=== PATIENT | male | born 1965 | race Hispanic/Latino ===

== ENCOUNTER 2017-12-21 19:00 | Emergency (ER) | payer SELFPAY ==
[2017-12-21] MEDS ORDERED: PHENYLEPHRINE 0.5% NOSE 15ML NAS ONE (20:14)
[2017-12-21] MEDS ORDERED: LIDOCAINE VISCOUS 2% SOLN 15 ML UDC ONE (20:18)
--- NOTE | 2017-12-21 20:22 | EDPHYS ---
Physician Documentation [facility] Name: Jose Salazar Age: 52 yrs Sex: Male : 1965 Arrival Date: 12/21/2017 Time: 19:05 Bed Waiting Private MD: ED Physician Moi Bean HPI: 12/21 20:05 This 52 yrs old Male presents to ER via Ambulatory with complaints of Nose ps1 Bleed. 20:05 patient scratched his right nares and now has epistaxis. Not on blood thinner. Has ps1 nasal clamp from triage. Pain mild. . Historical: - Allergies: 19:07 No Known Allergies; aa1 - Home Meds: 19:07 None [Active]; aa1 - PMHx: : None; aa1 - PSHx: 19:07 None; aa1 - Immunization history:: Last tetanus immunization: unknown. - Social history:: Smoking status: Patient/guardian denies using tobacco. - Ebola Screening: : No symptoms or risks identified at this time. ROS: 20:05 Constitutional: Negative for fever, chills, and weight loss, Eyes: Negative for injury, ps1 pain, redness, and discharge, Cardiovascular: Negative for chest pain, palpitations, and edema, Respiratory: Negative for shortness of breath, cough, wheezing, and pleuritic chest pain, Abdomen/GI: Negative for abdominal pain, nausea, vomiting, diarrhea, and constipation, MS/Extremity: Negative for injury and deformity, Neuro: Negative for headache, weakness, numbness, tingling, and seizure. 20:05 ENT: Positive for nose bleed. Exam: 20:05 Constitutional: This is a well developed, well nourished patient who is awake, alert, ps1 and in no acute distress. Head/Face: Normocephalic, atraumatic. Eyes: Pupils equal round and reactive to light, extra-ocular motions intact. Lids and lashes normal. Conjunctiva and sclera are non-icteric and not injected. Chest/axilla: Normal chest wall appearance and motion. Nontender with no deformity. No lesions are appreciated. Cardiovascular: Regular rate and rhythm. No gallops, murmurs, or rubs. Normal PMI, no JVD. No pulse deficits. Respiratory: Lungs have equal breath sounds bilaterally, clear to auscultation and percussion. No rales, rhonchi or wheezes noted. No increased work of breathing, no retractions or nasal flaring. Skin: Warm, dry with normal turgor. Normal color with no rashes, no lesions, and no evidence of cellulitis. MS/ Extremity: Pulses equal, no cyanosis. Neurovascular intact. Full, normal range of motion. Neuro: Awake and alert, GCS 15, oriented to person, place, time, and situation. Cranial nerves II-XII grossly intact. Sensory grossly intact. 20:05 ENT: Nose: Nasal septum: is midline, bleeding, and is moderate, that is moderate sized, clotted blood, in right nare, nasal drainage, and expressed from the right nare. Vital Signs: 19:07 BP 157 / 85; Pulse 83; Resp 18; Temp 98.8; Pulse Ox 96% on R/A; Weight 83.91 kg; Height aa1 5 ft. 9 in. (175.26 cm); Pain 0/10; 20:07 BP 120 / 81; Pulse 81; Resp 18; Pulse Ox 97% on R/A; aa1 19:07 Body Mass Index 27.32 (83.91 kg, 175.26 cm) aa1 Procedures: 20:09 Epistaxis treatment: A moderate amount of bleeding noted from right nare. Treated using ps1 Oxymetazoline sprays, nasal clamp, rhino rocket, Bleeding stopped. MDM: 20:09 Data reviewed: vital signs, nurses notes. Response to treatment: the patient's symptoms ps1 have markedly improved after treatment, and as a result, I will discharge patient, administer antibiotics. Special discussion: Based on the history and exam findings, there is no indication for further emergent testing or inpatient evaluation. I discussed with the patient/guardian the need to see the ENT specialist for further evaluation of the symptoms. 20:21 Patient medically screened. ps1 Administered Medications: 20:17 Drug: Boom-Synephrine [place] 0.5 % 2 sprays Route: Intranasal; Site: right nare; aa1 Disposition: 12/21/17 20:21 Discharged to Home. Impression: Epistaxis. - Condition is Stable. - Discharge Instructions: Nosebleed, Adult. - Prescriptions for Keflex 500 mg Oral Capsule - take 1 capsule by ORAL route every 12 hours for 10 days; 20 capsule. - Medication Reconciliation Form, Thank You Letter, Antibiotic Education, Prescription Opioid Use form. - Follow up: Jasmin Montes MD; When: 48 Hours; Reason: Recheck today's complaints, Continuance of care. - Problem is new. - Symptoms have improved. Signatures: Beena Antonio RN RN aa1 Moi Bean MD MD ps1 Corrections: (The following items were deleted from the chart) 20:06 20:05 This 52 yrs old Male presents to ER via Ambulatory with complaints of ps1 Nose Bleed. ps1 20:26 20:21 12/21/2017 20:21 Discharged to Home. Impression: Epistaxis. Condition is Stable. aa1 Forms are Medication Reconciliation Form, Thank You Letter, Antibiotic Education, Prescription Opioid Use. Follow up: Jasmin Montes; When: 48 Hours; Reason: Recheck today's complaints, Continuance of care. Problem is new. Symptoms have improved. ps1
--- NOTE | 2017-12-21 20:22 | ER ---
Nurse's Notes [facility] Name: Jose Salazar Age: 52 yrs Sex: Male : 1965 Arrival Date: 12/21/2017 Time: 19:05 Bed Waiting Private MD: Diagnosis: Epistaxis Presentation: 12/21 19:06 Presenting complaint: Patient states: he scratched his nose and it started bleeding and aa1 now it won't stop. Blood slowly dripping from R nare. Denies use of blood thinners. Transition of care: patient was not received from another setting of care. Onset of symptoms was December 21, 2017. Risk Assessment: Do you want to hurt yourself or someone else? Patient reports no desire to harm self or others. Initial Sepsis Screen: Does the patient meet any 2 criteria? No. Patient's initial sepsis screen is negative. Does the patient have a suspected source of infection? Yes: Skin breakdown/wound. Care prior to arrival: None. 19:06 Method Of Arrival: Ambulatory aa1 19:06 Acuity: ADAM 4 aa1 Triage Assessment: 19:07 General: Appears in no apparent distress. comfortable, Behavior is calm, cooperative, aa1 appropriate for age. Historical: - Allergies: 19:07 No Known Allergies; aa1 - Home Meds: 19:07 None [Active]; aa1 - PMHx: 19:07 None; aa1 - PSHx: 19:07 None; aa1 - Immunization history:: Last tetanus immunization: unknown. - Social history:: Smoking status: Patient/guardian denies using tobacco. - Ebola Screening: : No symptoms or risks identified at this time. Screenin:07 Abuse screen: Denies threats or abuse. Denies injuries from another. Nutritional aa1 screening: No deficits noted. Tuberculosis screening: No symptoms or risk factors identified. Fall Risk None identified. Assessment: 20:07 General: Appears in no apparent distress. comfortable, Behavior is calm, cooperative, aa1 appropriate for age. Pain: Denies pain. Neuro: Level of Consciousness is awake, alert, obeys commands, Oriented to person, place, time, situation, Moves all extremities. Full function Gait is steady, Speech is normal. Respiratory: Airway is patent Respiratory effort is even, unlabored, Respiratory pattern is regular, symmetrical. GI: No signs and/or symptoms were reported involving the gastrointestinal system. : No signs and/or symptoms were reported regarding the genitourinary system. EENT: Nares no active bleeding noted at this time. Reports nasal discharge that is bloody. Derm: Skin is intact, is healthy with good turgor, Skin is pink, warm \T\ dry. Musculoskeletal: Circulation, motion, and sensation intact. Capillary refill < 3 seconds. Vital Signs: 19:07 BP 157 / 85; Pulse 83; Resp 18; Temp 98.8; Pulse Ox 96% on R/A; Weight 83.91 kg; Height aa1 5 ft. 9 in. (175.26 cm); Pain 0/10; 20:07 BP 120 / 81; Pulse 81; Resp 18; Pulse Ox 97% on R/A; aa1 19:07 Body Mass Index 27.32 (83.91 kg, 175.26 cm) aa1 ED Course: 19:05 Patient arrived in ED. rg4 19:07 Triage completed. aa1 19:07 Arm band placed on left wrist. Patient placed in waiting room, Patient notified of wait aa1 time. 20:05 Moi Bean MD is Attending Physician. ps1 20:07 Beena Antonio RN is Primary Nurse. aa1 20:07 Patient has correct armband on for positive identification. aa1 20:07 Assist provider with nosebleed control using Afrin sprays, rhino rocket placed for aa1 extensive packing needs, Bleeding from right nares. Set up for procedure. Performed by Moi Bean MD Bleeding stopped. Patient tolerated well. Patient did not have IV access during this emergency room visit. 20:20 Jasmin Montes MD is Referral Physician. ps1 Administered Medications: 20:17 Drug: Boom-Synephrine Madeline 0.5 % 2 sprays Route: Intranasal; Site: right nare; aa1 Outcome: 20:21 Discharge ordered by . ps1 20:26 Discharged to home ambulatory, with significant other. aa1 20:26 Condition: good 20:26 Discharge instructions given to patient, significant other, Instructed on discharge instructions, follow up and referral plans. medication usage, Demonstrated understanding of instructions, follow-up care, medications, Prescriptions given X 1. 20:26 Patient left the ED. aa1 Signatures: Beena Antonio RN RN aa1 Aretha Verma rg4 Moi Bean, MD ps1
== END 2017-12-21 20:26 | disposition home or self-care (01) ==
LOC: ER 19:00
PROC: 2Y41X5Z Packing of Nasal Region using Packing Material (ICD-10-PCS; principal; 2017-12-21)
DX: R04.0 Epistaxis (principal)
CPT/HCPCS: 30901; 99283

== ENCOUNTER 2017-12-22 13:43 | Emergency (ER) | payer SELFPAY ==
[2017-12-22] MEDS ORDERED: PHENYLEPHRINE 0.5% NOSE 15ML NAS ONE (14:10)
[2017-12-22] MEDS ORDERED: SILVER NITRATE 1 APPL TOP ONE ×2 (14:10→15:19)
--- NOTE | 2017-12-22 20:15 | EDPHYS ---
Physician Documentation [facility] Name: Jose Salazar Age: 52 yrs Sex: Male : 1965 Arrival Date: 12/22/2017 Time: 13:46 Bed 6 Private MD: Jasmin Montes J ED Physician Moi Bean HPI: 12/22 14:20 This 52 yrs old Male presents to ER via Ambulatory with complaints of Nose ps1 Bleed. 14:20 patient seen and evaluated yesterday by myself. Rhino rocket placed and patient ps1 presented unable to get into Dr. Montes's office until Thursday. He was complaining of pain in nares. Removed Rhino rocket to reevaluate and had anterior nasal artery hemorrhage. . Historical: - Allergies: 14: No Known Allergies; aj - Home Meds: 14: None [Active]; aj - PMHx: 14: Alcoholism; aj - PSHx: 14:01 None; aj - Immunization history:: Adult Immunizations up to date. - Social history:: Smoking status: Patient/guardian denies using tobacco, Patient uses alcohol, on a daily basis. - Ebola Screening: : Patient negative for fever greater than or equal to 101.5 degrees Fahrenheit, and additional compatible Ebola Virus Disease symptoms Patient denies exposure to infectious person Patient denies travel to an Ebola-affected area in the 21 days before illness onset No symptoms or risks identified at this time. ROS: 14:20 Constitutional: Negative for fever, chills, and weight loss, Eyes: Negative for injury, ps1 pain, redness, and discharge, Cardiovascular: Negative for chest pain, palpitations, and edema, Respiratory: Negative for shortness of breath, cough, wheezing, and pleuritic chest pain, Abdomen/GI: Negative for abdominal pain, nausea, vomiting, diarrhea, and constipation, Back: Negative for injury and pain, MS/Extremity: Negative for injury and deformity, Neuro: Negative for headache, weakness, numbness, tingling, and seizure. 14:20 ENT: Positive for nose bleed. Exam: 14:20 Constitutional: This is a well developed, well nourished patient who is awake, alert, ps1 and in no acute distress. Head/Face: Normocephalic, atraumatic. Eyes: Pupils equal round and reactive to light, extra-ocular motions intact. Lids and lashes normal. Conjunctiva and sclera are non-icteric and not injected. Chest/axilla: Normal chest wall appearance and motion. Nontender with no deformity. No lesions are appreciated. Cardiovascular: Regular rate and rhythm. No gallops, murmurs, or rubs. Normal PMI, no JVD. No pulse deficits. Respiratory: Lungs have equal breath sounds bilaterally, clear to auscultation and percussion. No rales, rhonchi or wheezes noted. No increased work of breathing, no retractions or nasal flaring. Abdomen/GI: Soft, non-tender, with normal bowel sounds. No distension or tympany. No guarding or rebound. No evidence of tenderness throughout. Skin: Warm, dry with normal turgor. Normal color with no rashes, no lesions, and no evidence of cellulitis. MS/ Extremity: Pulses equal, no cyanosis. Neurovascular intact. Full, normal range of motion. 14:20 ENT: Nose: bleeding, is seen from the right nare, and is profuse, no septal hematoma is appreciated, Examination of the other nostril shows no obvious abnormality. Vital Signs: 14:01 BP 159 / 88; Pulse 82; Resp 20; Temp 98.4; Pulse Ox 100% on R/A; Weight 83.91 kg; aj Height 5 ft. 9 in. (175.26 cm); 15:17 BP 156 / 86; Pulse 78; Resp 16; Pulse Ox 97% on R/A; ph 16:24 BP 167 / 88; Pulse 77; Resp 18; Pulse Ox 100% on R/A; Pain 0/10; mg2 18:05 BP 161 / 90; Pulse 79; Resp 18; Pulse Ox 99% on R/A; Pain 0/10; mg2 19:15 BP 170 / 86; Pulse 75; Resp 14; Pulse Ox 98% ; bp 14:01 Body Mass Index 27.32 (83.91 kg, 175.26 cm) Procedures: 14:20 Epistaxis treatment: A moderate amount of bleeding noted from Pulsatile bleeding noted ps1 from right nare. Treated using cauterization, silver nitrate, direct pressure. MDM: 14:20 Data reviewed: vital signs, nurses notes. ps1 14:48 Patient medically screened. ps1 Administered Medications: 14:15 Drug: Silver Nitrate Applicators 1 application {Note: R nare.} Route: Topical; Site: ph affected area; 19:39 Follow up: Response: No adverse reaction bp 14:15 Drug: Afrin Drops (0.05 %) 1 sprays Route: Intranasal; Site: right nare; ph 19:40 Follow up: Response: No adverse reaction bp Disposition: 12/22/17 19:35 Discharged to Home. Impression: Epistaxis. - Condition is Stable. - Discharge Instructions: Nosebleed, Adult. - Medication Reconciliation Form, Thank You Letter, Antibiotic Education, Prescription Opioid Use form. - Follow up: Jasmin Montes MD; When: 1 week; Reason: Continuance of care. Follow up: Emergency Department; When: As needed; Reason: Worsening of condition. - Problem is an ongoing problem. - Symptoms have improved. Signatures: Deanna Christensen RN RN Mickie Pierre RN RN Fred Hernandez RN RN bp Moi Bean MD MD ps1 Corrections: (The following items were deleted from the chart) 19:50 19:35 12/22/2017 19:35 Discharged to Home. Impression: Epistaxis. Condition is Stable. bp Forms are Medication Reconciliation Form, Thank You Letter, Antibiotic Education, Prescription Opioid Use. Follow up: Jasmin Montes; When: 1 week; Reason: Continuance of care. Follow up: Emergency Department; When: As needed; Reason: Worsening of condition. Problem is an ongoing problem. Symptoms have improved. ps1
--- NOTE | 2017-12-22 20:15 | ER ---
Nurse's Notes [facility] Name: Jose Salazar Age: 52 yrs Sex: Male : 1965 Arrival Date: 12/22/2017 Time: 13:46 Bed 6 Private MD: Jasmin Montes J Diagnosis: Epistaxis Presentation: 12/22 13:59 Presenting complaint: Patient states: "I want this thing out of my nose, it is aj uncomfortable." Patient seen in this ER last night, Rhino Rocket placed in right nare. Patient reports he was unable to follow up with Dr Montes. Did not fill ABX. Transition of care: patient was not received from another setting of care. Onset of symptoms was December 21, 2017. Risk Assessment: Do you want to hurt yourself or someone else? Patient reports no desire to harm self or others. Initial Sepsis Screen: Does the patient meet any 2 criteria? No. Patient's initial sepsis screen is negative. Does the patient have a suspected source of infection? No. Patient's initial sepsis screen is negative. Care prior to arrival: None. 13:59 Method Of Arrival: Ambulatory 13:59 Acuity: ADAM 5 aj Triage Assessment: 14:01 General: Appears in no apparent distress. comfortable, Behavior is calm, cooperative, aj appropriate for age. Pain: Complains of pain in right nostril. EENT: Reports pain in right nostril. Neuro: Level of Consciousness is awake, alert, obeys commands, Oriented to person, place, time, situation, Appropriate for age. Respiratory: Airway is patent Respiratory effort is even, unlabored, Respiratory pattern is regular, symmetrical. Derm: Skin is intact, is healthy with good turgor, Skin is pink, warm \\T\\ dry. normal. Historical: - Allergies: 14:01 No Known Allergies; aj - Home Meds: 14:01 None [Active]; aj - PMHx: 14: Alcoholism; aj - PSHx: 14:01 None; aj - Immunization history:: Adult Immunizations up to date. - Social history:: Smoking status: Patient/guardian denies using tobacco, Patient uses alcohol, on a daily basis. - Ebola Screening: : Patient negative for fever greater than or equal to 101.5 degrees Fahrenheit, and additional compatible Ebola Virus Disease symptoms Patient denies exposure to infectious person Patient denies travel to an Ebola-affected area in the 21 days before illness onset No symptoms or risks identified at this time. Screenin:19 Abuse screen: Denies threats or abuse. Denies injuries from another. Nutritional ph screening: No deficits noted. Tuberculosis screening: No symptoms or risk factors identified. Fall Risk None identified. Assessment: 14:10 General: Appears in no apparent distress. comfortable, obese, well groomed, Behavior is ph calm, cooperative, appropriate for age, Denies fever, feeling ill. Pain: Denies pain. Neuro: Level of Consciousness is awake, alert, obeys commands, Oriented to person, place, time, situation, Denies weakness blurred vision dizziness, headache. Cardiovascular: Capillary refill < 3 seconds in bilateral fingers Patient's skin is warm and dry. Respiratory: Airway is patent Respiratory effort is even, unlabored. GI: No signs and/or symptoms were reported involving the gastrointestinal system. Patient currently denies nausea. EENT: Nares with bleeding noted on right. Derm: Skin is intact, is healthy with good turgor, Skin is pink, warm \\T\\ dry. Musculoskeletal: Circulation, motion, and sensation intact. Range of motion: intact in all extremities. 14:15 Reassessment: Dr Bean at bedside to assess bleeding. R nare suctioned, Affrin and ph silver nitrate administered and nasal clamp applied. 15:16 Reassessment: Patient appears in no apparent distress at this time. Patient and/or ph family updated on plan of care and expected duration. Pain level reassessed. Patient is alert, oriented x 3, equal unlabored respirations, skin warm/dry/pink. ERP at bedside, small amount of bleeding still noted, applied small amount of silver nitrate to area. 18:06 Reassessment: Patient appears in no apparent distress at this time. Patient and/or mg2 family updated on plan of care and expected duration. Pain level reassessed. Patient is alert, oriented x 3, equal unlabored respirations, skin warm/dry/pink. 19:00 Reassessment: RECD REPORT FROM MELISSA ALCALA. 52YO HM P/W NOSEBLEED, NOW RESOLVED. VS bp STABLE ON MONITOR. 19:48 Reassessment: PT D/C HOME AMBULATORY WITH FAMILY, DX WITH EPISTAXIS. NO BLEEDING AT bp THIS TIME. Vital Signs: 14:01 BP 159 / 88; Pulse 82; Resp 20; Temp 98.4; Pulse Ox 100% on R/A; Weight 83.91 kg; aj Height 5 ft. 9 in. (175.26 cm); 15:17 BP 156 / 86; Pulse 78; Resp 16; Pulse Ox 97% on R/A; ph 16:24 BP 167 / 88; Pulse 77; Resp 18; Pulse Ox 100% on R/A; Pain 0/10; mg2 18:05 BP 161 / 90; Pulse 79; Resp 18; Pulse Ox 99% on R/A; Pain 0/10; mg2 19:15 BP 170 / 86; Pulse 75; Resp 14; Pulse Ox 98% ; bp 14:01 Body Mass Index 27.32 (83.91 kg, 175.26 cm) aj ED Course: 13:46 Patient arrived in ED. sb2 13:46 Jasmin Montes MD is Private Physician. sb2 13:49 Moi Bean MD is Attending Physician. ps1 14:01 Triage completed. aj 14:01 Arm band placed on left wrist. Patient placed in an exam room. aj 14:28 Mickie Tovar, CARI is Primary Nurse. ph 15:20 Patient has correct armband on for positive identification. Bed in low position. Call ph light in reach. Side rails up X 1. Pulse ox on. NIBP on. 19:35 Jasmin Montes MD is Referral Physician. ps1 19:49 No provider procedures requiring assistance completed. Patient did not have IV access bp during this emergency room visit. Administered Medications: 14:15 Drug: Silver Nitrate Applicators 1 application {Note: R nare.} Route: Topical; Site: ph affected area; 19:39 Follow up: Response: No adverse reaction bp 14:15 Drug: Afrin Drops (0.05 %) 1 sprays Route: Intranasal; Site: right nare; ph 19:40 Follow up: Response: No adverse reaction bp Outcome: 19:35 Discharge ordered by MD. ps1 19:49 Discharged to home ambulatory, with family. bp 19:49 Condition: stable 19:49 Discharge instructions given to patient, Instructed on discharge instructions, follow up and referral plans. Demonstrated understanding of instructions, follow-up care. 19:50 Patient left the ED. bp Signatures: Deanna Christensen, RN RN Mickie Pierre RN RN ph Heena, Fred, RN RN bp Moi Bean MD MD ps1 Elizabeth Torres sb2 Shine Harris RN RN mg2
== END 2017-12-22 19:50 | disposition home or self-care (01) ==
LOC: ER 13:43
PROC: 0W3Q7ZZ Control Bleeding in Respiratory Tract, Via Natural or Artificial Opening (ICD-10-PCS; principal; 2017-12-22)
DX: R04.0 Epistaxis (principal)
CPT/HCPCS: 30901; 99283

== ENCOUNTER 2020-08-31 15:07 | Day surgery (SDC) | payer SELFPAY ==
--- OUTSIDE RECORDS SUMMARY | 2020-08-31 15:09 | XMS REPORT | Continuity of Care Document ---
:1965 Author Organization [facility] t Address [address] [place] [address] Care Team Providers Name Role Phone Silverio Walsh DO Attending Clinician Danilo Norton RN Attending Clinician Problems This patient has no known problems. Allergies, Adverse Reactions, Alerts This patient has no known allergies or adverse reactions. Medications This patient has no known medications. Procedures This patient has no known procedures. Encounters Start End Encounter Admission Attending Care Care Encounter Source Date/Time Date/Time Type Type Clinicians Facility Department ID 2020-08-14 2020-08-14 Patient Nico OHHARITHA [id number] 00:00:00 00:00:00 Outreach Silverio FERNÁNDEZ [id number] [place] [facility] [id number] KORY [id number] 2019-06-20 2019-06-20 Josep ANTHONY [id number] 00:00:00 00:00:00 Management , Poppy DASH [id number] [facility] [id number] Results This patient has no known results.
--- NOTE | 2020-08-31 16:21 | RAD REPORT ---
EXAM DESCRIPTION: RAD - Hand Left 3 View - 08/31/2020 4:05 pm CLINICAL HISTORY: Pain;Smash injury FINDINGS: Transverse fracture is seen involving the proximal phalanx of the fifth finger. Mild soft tissue swelling is evident. No dislocation is seen.
[2020-08-31] MEDS ORDERED: HYDROCODONE/APAP 7.5/325 MG TAB ONE (16:23)
[2020-08-31] MEDS ORDERED: TETANUS & DIPHTHERIA TOX,ADULT 0.5 ML VIAL ONE (16:24)
--- NOTE | 2020-08-31 16:45 | EDPHYS ---
Physician Documentation [facility] Name: Jose Salazar Age: 54 yrs Sex: Male : 1965 Arrival Date: 08/31/2020 Time: 15:12 Bed 14 Private MD: ED Physician Jabari Carmona HPI: 08/31 15:45 This 54 yrs old Male presents to ER via Ambulatory with complaints of Finger cp Injury. 15:45 The patient or guardian reports injury, a laceration, swelling, tenderness. The cp complaints affect the left fifth finger. 15:45 Context: resulted from a crush injury, from tire and rim. Onset: The symptoms/episode cp began/occurred just prior to arrival. Associated signs and symptoms: Pertinent negatives: cyanosis distally, decreased sensation distally. Historical: - Allergies: 15:29 No Known Allergies; ss - Home Meds: 15:29 None [Active]; ss - PMHx: 15:29 None; ss - PSHx: 15:29 None; ss - Immunization history:: Last tetanus immunization: unknown. - Social history:: Smoking status: Patient denies any tobacco usage or history of. ROS: 15:50 MS/extremity: Positive for injury or acute deformity, decreased range of motion, cp laceration, pain, swelling, tenderness, of the left fifth finger. 15:50 Eyes: Negative for injury, pain, redness, and discharge. cp 15:50 Constitutional: Negative for body aches, chills, fever, poor PO intake. 15:50 Cardiovascular: Negative for chest pain. 15:50 Respiratory: Negative for cough, shortness of breath, wheezing. 15:50 Abdomen/GI: Negative for abdominal pain, nausea, vomiting, and diarrhea. 15:50 Neuro: Negative for altered mental status, headache, weakness. 15:50 All other systems are negative. Exam: 15:55 Constitutional: The patient appears in no acute distress, alert, awake, cp non-diaphoretic, non-toxic, well developed, well nourished. 15:55 Head/Face: Normocephalic, atraumatic. cp 15:55 Chest/axilla: Inspection: normal. 15:55 Cardiovascular: Rate: normal, Rhythm: regular. 15:55 Respiratory: the patient does not display signs of respiratory distress, Respirations: normal, no use of accessory muscles, no retractions, labored breathing, is not present, Breath sounds: are clear throughout, no decreased breath sounds, no stridor, no wheezing. 15:55 Abdomen/GI: Exam negative for discomfort, distension, guarding, Inspection: abdomen appears normal. 15:55 Musculoskeletal/extremity: Extremities: grossly normal except: noted in the proximal phalanx left small finger: decreased ROM, laceration, pain, swelling, tenderness, Perfusion: the extremity is with brisk capillary refill, Sensation intact. 15:55 Neuro: Orientation: to person, place \T\ time. Mentation: is normal. 16:58 ECG was reviewed by the Attending Physician. Vital Signs: 15:27 BP 136 / 79; Pulse 88; Resp 16; Temp 99.3(TE); Pulse Ox 100% on R/A; Weight 79.38 kg; ss Height 5 ft. 9 in. (175.26 cm); Pain 8/10; 15:27 Body Mass Index 25.84 (79.38 kg, 175.26 cm) ss MDM: 15:32 Patient medically screened. cp 16:00 Differential diagnosis: dislocation, open fracture, closed fracture, contusion. cp 16:22 Physician consultation: Sagar Zuniga MD in the emergency department to see patient at cp 16:22, requests admittance for surgery. 16:25 Data reviewed: vital signs, nurses notes, radiologic studies, plain films, and as a result, I will admit patient. 08/31 16:21 Order name: Basic Metabolic Panel; Complete Time: 19:21 cp 08/31 Interpretation: Normal except: GLUC 487; CA 8.4. cp 08/31 16:21 Order name: CBC with Diff; Complete Time: 19:21 cp 08/31 19:22 Interpretation: Normal except: RBC 4.25; MCV 94.1; PLT 67. cp 08/31 16:21 Order name: LFT's; Complete Time: 19:21 cp 08/31 19:22 Interpretation: Normal except: AST 57; ALK 228; BILIT 2.5; BILID 0.8; ALB 2.9; GLOB cp 3.8; A/G 0.8. 08/31 16:21 Order name: Magnesium; Complete Time: 19:21 cp 08/31 16:21 Order name: PT-INR; Complete Time: 19:21 cp 08/31 15:39 Order name: XRAY Hand LEFT 3 View; Complete Time: 19:21 cp 08/31 16:21 Order name: XRAY Chest (1 view); Complete Time: 19:21 cp 08/31 16:21 Order name: EKG; Complete Time: 16:22 cp 08/31 15:39 Order name: Wound Care: please clean and irrigate wound; Complete Time: 15:45 cp 08/31 16:11 Order name: Dressing - Wound 08/31 16:11 Order name: Gloves, Sterile 08/31 16:11 Order name: Setup Suture Tray 08/31 16:21 Order name: Cardiac monitoring; Complete Time: 16:43 cp 08/31 16:21 Order name: EKG - Nurse/Tech; Complete Time: 16:43 cp 08/31 16:21 Order name: IV Saline Lock; Complete Time: 16:34 cp 08/31 16:21 Order name: Labs collected and sent; Complete Time: 16:34 cp 08/31 16:21 Order name: O2 Per Protocol; Complete Time: 16:43 cp 08/31 16:21 Order name: O2 Sat Monitoring; Complete Time: 16:43 cp 08/31 16:21 Order name: Urine Dipstick-Ancillary (obtain specimen) cp EC:58 Rate is 67 beats/min. Rhythm is regular. OK interval is normal. QRS interval is cp prolonged at 102 msec. QT interval is normal. T waves are Flattened in lead aVL. Interpreted by me. Reviewed by me. Administered Medications: 16:11 Drug: Tetanus-Diphtheria Toxoid Adult 0.5 ml {Surfacing Technician: magnetU. Exp: ll1 10/28/2021. Lot #: [id number]. } Route: IM; Site: right deltoid; 16:12 Drug: Hydrocodone-Acetaminophen (7.5 mg-325 mg) 1 tabs Route: PO; ll1 16:27 Not Given (OR): Marcaine (bupivacaine) (0.5 %) 5 ml 10 ml Infiltration once ll1 16:28 Not Given (OR): Lidocaine (1 %) 5 ml 5 ml Infiltration once; to bedside ll1 16:49 Not Given (Given to OR tech, Lixzena): Ancef (cefazolin) 1 grams IVPB once ll1 Disposition: 09/01 07:27 Co-signature as Attending Physician, Jabari Carmona MD I agree with the assessment and cathy plan of care. Disposition: 08/31/20 16:45 Hospitalization ordered by Sagar Zuniga for Observation. Preliminary diagnosis is Displaced fracture of proximal phalanx of left little finger - open. - Bed requested for Operating Room. - Status is Observation. ll1 - Condition is Stable. - Problem is new. - Symptoms have improved. Signatures: Dispatcher [employer] EDOK Jabari Carmona MD MD cha Smirch, Shelby, RN RN Jabari Adler PA PA cp Lewis, Lynsay RN RN ll1 Corrections: (The following items were deleted from the chart) 08/31 16:56 16:45 Hospitalization Ordered by Sagar Zuniga MD for Observation. Preliminary ll1 diagnosis is Displaced fracture of proximal phalanx of left little finger - open. Bed requested for Operating Room. Status is Observation. Condition is Stable. Problem is new. Symptoms have improved. cp
--- NOTE | 2020-08-31 16:45 | ER ---
Nurse's Notes [facility] Name: Jose Salazar Age: 54 yrs Sex: Male : 1965 Arrival Date: 08/31/2020 Time: 15:12 Bed 14 Private MD: Diagnosis: Displaced fracture of proximal phalanx of left little finger-open Presentation: 08/31 15:27 Chief complaint: Patient states: "A tire fell on my finger with the rim about 30 ss minutes ago. Swelling and small amount of dry blood noted to L fifth finger. Coronavirus screen: Client denies travel out of the [place] in the last 14 days. Ebola Screen: Patient denies exposure to infectious person. Patient denies travel to an Ebola-affected area in the 21 days before illness onset. Initial Sepsis Screen: Does the patient meet any 2 criteria? No. Patient's initial sepsis screen is negative. Does the patient have a suspected source of infection? No. Patient's initial sepsis screen is negative. Risk Assessment: Do you want to hurt yourself or someone else? Patient reports no desire to harm self or others. Onset of symptoms was August 31, 2020. 15:27 Method Of Arrival: Ambulatory ss 15:27 Acuity: ADAM 4 ss Historical: - Allergies: 15:29 No Known Allergies; ss - Home Meds: 15:29 None [Active]; ss - PMHx: 15:29 None; ss - PSHx: 15:29 None; ss - Immunization history:: Last tetanus immunization: unknown. - Social history:: Smoking status: Patient denies any tobacco usage or history of. Screenin:55 Abuse screen: Denies threats or abuse. Nutritional screening: No deficits noted. ll1 Tuberculosis screening: No symptoms or risk factors identified. Fall Risk IV access (20 points). Total Mata Fall Scale indicates No Risk (0-24 pts). Assessment: 16:05 General: Appears uncomfortable, Behavior is calm, cooperative, appropriate for age. ll1 16:05 Pain: Complains of pain in L hand 5th digit Quality of pain is described as aching. ll1 Derm: Wound noted <2 cm laceration L hand 5th digit Reports pain. Musculoskeletal: Circulation, motion, and sensation intact. Capillary refill < 3 seconds, Swelling present in L hand 5th digit Reports pain in L hand 5th digit. Injury Description: Crush injury. 16:55 Reassessment: No changes from previously documented assessment. Patient and/or family ll1 updated on plan of care and expected duration. Pain level reassessed. Patient is alert, oriented x 3, equal unlabored respirations, skin warm/dry/pink. Vital Signs: 15:27 BP 136 / 79; Pulse 88; Resp 16; Temp 99.3(TE); Pulse Ox 100% on R/A; Weight 79.38 kg; ss Height 5 ft. 9 in. (175.26 cm); Pain 8/10; 15:27 Body Mass Index 25.84 (79.38 kg, 175.26 cm) ss ED Course: 15:12 Patient arrived in ED. mr 15:29 Triage completed. ss 15:29 Arm band placed on right wrist. ss 15:32 Jabari Adler PA is PHCP. cp 15:32 Jabari Carmona MD is Attending Physician. cp 15:59 Cesar Gutiérrez RN is Primary Nurse. ll1 16:06 XRAY Hand LEFT 3 View In Process Unspecified. EDMS 16:35 Inserted saline lock: 22 gauge in right antecubital area, using aseptic technique. ll1 Blood collected. 16:43 Sagar Zuniga MD is Hospitalizing Provider. cp 16:47 XRAY Chest (1 view) In Process Unspecified. EDMS 16:56 Patient has correct armband on for positive identification. Bed in low position. Call ll1 light in reach. Side rails up X 1. 16:56 No provider procedures requiring assistance completed. Patient admitted, IV remains in ll1 place. Administered Medications: 16:11 Drug: Tetanus-Diphtheria Toxoid Adult 0.5 ml {Diet Aid: ITDatabase. Exp: ll1 10/28/2021. Lot #: [id number]. } Route: IM; Site: right deltoid; 16:12 Drug: Hydrocodone-Acetaminophen (7.5 mg-325 mg) 1 tabs Route: PO; ll1 16:27 Not Given (OR): Marcaine (bupivacaine) (0.5 %) 5 ml 10 ml Infiltration once ll1 16:28 Not Given (OR): Lidocaine (1 %) 5 ml 5 ml Infiltration once; to bedside ll1 16:49 Not Given (Given to OR tech, Lixzena): Ancef (cefazolin) 1 grams IVPB once ll1 Outcome: 16:45 Decision to Hospitalize by Provider. cp 16:56 Admitted to OR accompanied by tech, via stretcher, with chart, Report called to JAMESON Silvestre 16:56 Condition: stable 16:56 Instructed on the need for admit. 16:56 Patient left the ED. [facility] Signatures: Dispatcher [employer] LUCILAKY Miesha Bell mr Justine Partida, RN RN Jabari Manriquez, INGRIS PA cp Cesar Gutiérrez, RN RN 1
--- NOTE | 2020-08-31 16:52 | RAD REPORT ---
EXAM DESCRIPTION: RAD - Chest Single View - 08/31/2020 4:47 pm CLINICAL HISTORY: pre op Chest pain. COMPARISON: Chest Pa And Lat (2 Views) dated 06/19/2017 FINDINGS: Portable technique limits examination quality. The lungs are mildly emphysematous but grossly clear. The heart is normal in size. No displaced fract ures. IMPRESSION: No acute intrathoracic process suspected.
[2020-08-31 16:59] LABS: Absolute Lymphocytes (CBC) 1.1 K/uL (0.7-4.9); Basophils % 1.3 % (0-1.3); Lymphocytes % 23.4 % (15.3-44.8); MPV 11.2 fL (7.6-11.3); RBC Red Blood Cell Count 4.25 M/uL (4.33-5.43)
[2020-08-31] MEDS ORDERED: CEFAZOLIN/SWI 1gm 1 GM/10 ML SYR ONE (17:05)
[2020-08-31 17:07] LABS: Protime INR 1.63
[2020-08-31 17:16] LABS: ALT/SGPT 43 U/L (12-78); AST/SGOT 57 U/L (15-37); Albumin 2.9 g/dL (3.4-5.0); Alkaline Phosphatase 228 U/L (45-117); BUN Blood Urea Nitrogen 8 mg/dL (7-18); Bicarbonate 23 mmol/L (21-32); Bilirubin Direct 0.8 mg/dL (0-0.2); Bilirubin Total 2.5 mg/dL (0.2-1.0); Potassium 4.2 mmol/L (3.5-5.1); Protein, Total 6.7 g/dL (6.4-8.2); Sodium Level 137 mmol/L (136-145)
[2020-08-31 17:24] LABS: Glucose Level 487 mg/dL (74-106)
[2020-08-31] MEDS ORDERED: FENTANYL CITR 100 MCG/2 ML ONE (17:25)
[2020-08-31] MEDS ORDERED: propofoL 200 MG/20 ML VIAL IV ONE (17:25)
[2020-08-31] MEDS ORDERED: LIDOCAINE 1% MPF 5 ML VIAL ONE (17:25)
[2020-08-31] MEDS ORDERED: Ringers Lactate 1,000 ML IV ONE (17:25)
[2020-08-31] MEDS ORDERED: MIDAZOLAM HCL 2 MG/2 ML INJ ONE (17:26)
[2020-08-31] MEDS ORDERED: ONDANSETRON 4 MG/2 ML VIAL ONE (17:26)
[2020-08-31] MEDS ORDERED: dexAMETHasone 4 MG/ML VIAL ONE (17:26)
[2020-08-31] MEDS ORDERED: KETOROLAC 30 MG/ML INJ ONE (17:31)
[2020-08-31 18:21] LABS: Blood Morphology Comment NOT SEEN (NOT SEEN); Platelet Estimate DECR; White Blood Cell Scan OK (OK)
[2020-08-31 18:43] VITALS: TEMP 97.3
[2020-08-31 19:04] VITALS: BP 155/81; O2SAT 100
--- NOTE | 2020-08-31 19:04 | RAD REPORT ---
EXAM DESCRIPTION: RAD - Hand Left 2 View - 08/31/2020 6:49 pm CLINICAL HISTORY: Finger pinning COMPARISON: Hand Left 3 View dated 08/31/2020 FINDINGS: Fluoroscopy time 0.7 minutes.
[2020-08-31] MEDS ORDERED: CODEINE 30MG/APAP 300MG TAB ONE (19:19)
--- NOTE | 2020-08-31 23:20 | OP ---
Surgeon: Sagar Zuniga MD Preoperative Diagnosis: Fracture of left fifth proximal phalanx. Postoperative Diagnosis: Fracture of left fifth proximal phalanx. Procedure Performed: Percutaneous pinning and splint. Anesthesia: General. Procedure In Detail: After satisfactory induction of general anesthesia, left arm was prepped with Betadine scrub and paint. Dry sterile drapes were applied in the usual manner. A 0.035 K-wire was placed from distal to proximal with the PIP flexed under C-arm guidance and then used to reduce the fracture and hold the MCP joint. Two pins were placed and advanced proximally. Then the PIP joint was placed in extension and pins were advanced distally and then pins were bent and cut off and then dressed with Kerlix and splint. The patient tolerated procedure well and returned to recovery. ULICES/LICHA Voice ID: [id number] Report ID: [id number] FAITH
--- NOTE | 2020-09-01 10:17 | EKG ---
Test Date: 2020-08-31 Test Time: 16:49:41 Winery Worker: PAVITHRA MEASUREMENT RESULTS: Intervals: Rate: 67 CO: 164 QRSD: 102 QT: 418 QTc: 441 [place]: P: 56 CO: 164 QRS: 55 T: 62 INTERPRETIVE STATEMENTS: Normal sinus rhythm Normal ECG Compared to ECG 06/19/2017 19:39:28 Sinus tachycardia no longer present Electronically Signed On 09-01-20 10:15:20 CDT by Jaswinder Duffy
== END 2020-08-31 18:17 | disposition home or self-care (01) ==
LOC: ER 15:07 → OR 16:56 → ER 19:20
PROVIDERS: ATTEND Specialist
PROC: 0PSV34Z Reposition Left Finger Phalanx with Internal Fixation Device, Percutaneous Approach (ICD-10-PCS; principal; 2020-08-31 17:00)
DX: S62.617A Displaced fracture of proximal phalanx of left little finger, initial encounter for closed fracture (principal); U07.1 COVID-19; Z23 Encounter for immunization
CPT/HCPCS: 36415; 71045; 80048; 80076; 83735; 85025; 85610; 90471; 90714; 93005; 99285; J0690; J1100; J2250; J2405; J2704; J3010; J7120; U0003